=== PATIENT | female | born 1965 | race Caucasian/White ===

== ENCOUNTER 2017-08-16 18:56 | Inpatient (IN) | payer OTHER ==
[~2017-08-16] VITALS: Ht 160 cm; Wt 90.7 kg
[2017-08-16 19:02] VITALS: BP_SYST 149
[2017-08-16] MEDS ORDERED: NACL 0.9% 1,000 ML IV ONE (20:10)
[2017-08-16] MEDS ORDERED: KETOROLAC TROMETHAMINE 30 MG VIAL IVP ONE (20:15)
[2017-08-16] MEDS ORDERED: ONDANSETRON HCL 4 MG/2 ML VIAL IVP ONE (20:15)
[2017-08-16 20:36] LABS: HEMATOCRIT 47.4 % (36-48); HEMOGLOBIN 15.6 g/dL (12.0-16.0); MEAN CORPUSCULAR HEMOGLOBIN 29 pg (27-31); MEAN CORPUSCULAR HGB CONC 33 % (32-36); MEAN CORPUSCULAR VOLUME 89 fL (79.0-98.0); PLATELET COUNT (AUTO) 324 K/uL (130-430); RED BLOOD CELL COUNT(AUTO) 5.34 MIL/uL (4.2-6.2); RED CELL DISTRIBUTION WIDTH 12.8 % (9.0-15.0); WHITE BLOOD COUNT (AUTO) 9.9 K/uL (4.8-10.8)
[2017-08-16 20:50] LABS: CALCIUM 9.1 mg/dL (8.4-11.0); CREATININE 0.92 mg/dL (0.55-1.30); POTASSIUM 3.7 mmol/L (3.5-5.1)
[2017-08-16 20:55] LABS: TOTAL BILIRUBIN 2.6 mg/dL (0.0-1.0)
[2017-08-16 20:58] LABS: BAND % (MANUAL) 21 % (0-6); LYMPHOCYTES % (MANUAL) 7 % (20-46)
[2017-08-16 20:59] LABS: BASOPHILS % (MANUAL) 0 % (0-2); EOSINOPHILS % (MANUAL) 0 % (0-7); MONOCYTES % (MANUAL) 5 % (0-11)
[2017-08-16] MEDS ORDERED: metroNIDAZOLE 500 mg/NS 100 ML IV ONE (21:15)
[2017-08-16] MEDS ORDERED: fentaNYL CITRATE/PF 100 MCG/2 ML AMP IVP ONE (21:30)
[2017-08-16 22:04] VITALS: BP_SYST 135
[2017-08-16] MEDS ORDERED: MORPHINE 4 MG/ML INJ. SYRINGE IVP PRN (22:15)
[2017-08-16] MEDS ORDERED: ONDANSETRON HCL 4 MG/2 ML VIAL IVP PRN (22:15)
[2017-08-17] VITALS (7 sets, daily range): BP systolic 127–144
[2017-08-17] MEDS ORDERED: metroNIDAZOLE 500 mg/NS 100 ML IV ONE (02:14)
[2017-08-17] MEDS ORDERED: LEVOFLOXACIN 500 MG/D5W 100 ML IV ONE (02:14)
[2017-08-17] MEDS: LEVOFLOXACIN 500 MG/D5W 100 ML IV SCH (02:54)
[2017-08-17] MEDS: D5NS 1,000 ML IV SCH ×3 (02:55→20:54)
[2017-08-17] MEDS: MORPHINE 2 MG/ML INJ. SYRINGE IVP PRN ×3 (03:04→17:54)
[2017-08-17] MEDS: metroNIDAZOLE 500 mg/NS 100 ML IV SCH ×3 (05:17→21:24)
[2017-08-17 06:22] LABS: BASOPHILS % (AUTO) 0.3 % (0.0-2.0); EOSINOPHILS # (AUTO) 0.1 K/uL (0.0-0.4); EOSINOPHILS % (AUTO) 1.3 % (0.0-4.0); HEMATOCRIT 41.4 % (36-48); HEMOGLOBIN 14.1 g/dL (12.0-16.0); LYMPHOCYTES # (AUTO) 1.1 K/uL (1.0-5.5); MEAN CORPUSCULAR HEMOGLOBIN 31 pg (27-31); MEAN CORPUSCULAR HGB CONC 34 % (32-36); MEAN CORPUSCULAR VOLUME 89 fL (79.0-98.0); MONOCYTES # (AUTO) 0.7 K/uL (0.0-1.0); MONOCYTES % (AUTO) 8.1 % (1.7-9.3); NEUTROPHILS # (AUTO) 6.3 K/uL (1.8-7.7); NEUTROPHILS % (AUTO) 77.3 % (40.0-70.0); PLATELET COUNT (AUTO) 249 K/uL (130-430); RED BLOOD CELL COUNT(AUTO) 4.63 MIL/uL (4.2-6.2); RED CELL DISTRIBUTION WIDTH 12.7 % (9.0-15.0); WHITE BLOOD COUNT (AUTO) 8.2 K/uL (4.8-10.8)
[2017-08-17 06:31] LABS: PROTHROMBIN TIME 10.3 SECS (9.5-12.5)
[2017-08-17 06:46] LABS: ALBUMIN 3.2 g/dL (3.4-4.8); CALCIUM 8.2 mg/dL (8.4-11.0); CREATININE 0.79 mg/dL (0.55-1.30); POTASSIUM 3.4 mmol/L (3.5-5.1); TOTAL BILIRUBIN 2.1 mg/dL (0.0-1.0)
[2017-08-17] MEDS: PANTOPRAZOLE SODIUM 40 MG/VIAL (PROTONIX) IVP SCH (09:15)
[2017-08-18] MEDS: LEVOFLOXACIN 500 MG/D5W 100 ML IV SCH (01:14)
[2017-08-18 04:45] VITALS: BP_SYST 120; BP_SYST 123
[2017-08-18] MEDS: metroNIDAZOLE 500 mg/NS 100 ML IV SCH ×3 (05:29→21:42)
[2017-08-18 05:34] LABS: BASOPHILS % (AUTO) 0.2 % (0.0-2.0); EOSINOPHILS # (AUTO) 0.1 K/uL (0.0-0.4); EOSINOPHILS % (AUTO) 0.8 % (0.0-4.0); HEMATOCRIT 38.3 % (36-48); HEMOGLOBIN 13.1 g/dL (12.0-16.0); LYMPHOCYTES # (AUTO) 0.8 K/uL (1.0-5.5); LYMPHOCYTES % (AUTO) 7.4 % (20.5-51.5); MEAN CORPUSCULAR HEMOGLOBIN 30 pg (27-31); MEAN CORPUSCULAR HGB CONC 34 % (32-36); MEAN CORPUSCULAR VOLUME 89 fL (79.0-98.0); MONOCYTES # (AUTO) 1.2 K/uL (0.0-1.0); NEUTROPHILS # (AUTO) 8.6 K/uL (1.8-7.7); NEUTROPHILS % (AUTO) 80.6 % (40.0-70.0); PLATELET COUNT (AUTO) 206 K/uL (130-430); RED BLOOD CELL COUNT(AUTO) 4.32 MIL/uL (4.2-6.2); RED CELL DISTRIBUTION WIDTH 12.9 % (9.0-15.0); WHITE BLOOD COUNT (AUTO) 10.7 K/uL (4.8-10.8)
[2017-08-18 05:48] LABS: ALBUMIN 3.1 g/dL (3.4-4.8); CALCIUM 8.2 mg/dL (8.4-11.0); CREATININE 0.83 mg/dL (0.55-1.30); POTASSIUM 3.5 mmol/L (3.5-5.1)
[2017-08-18] MEDS: D5NS 1,000 ML IV SCH ×2 (06:49→17:25)
[2017-08-18 08:36] VITALS: BP_SYST 127
[2017-08-18] MEDS: PANTOPRAZOLE SODIUM 40 MG/VIAL (PROTONIX) IVP SCH (08:40)
[2017-08-18 12:42] VITALS: BP_SYST 131
[2017-08-18 16:11] VITALS: BP_SYST 134
[2017-08-18] MEDS ORDERED: MORPHINE 2 MG/ML INJ. SYRINGE ONE (18:27)
[2017-08-18] MEDS ORDERED: MORPHINE 2 MG/ML INJ. SYRINGE IVP PRN (18:30)
[2017-08-18 20:00] VITALS: BP_SYST 144
[2017-08-19] VITALS (7 sets, daily range): BP systolic 128–150
[2017-08-19] MEDS: MORPHINE 2 MG/ML INJ. SYRINGE IVP PRN ×2 (00:25→21:42)
[2017-08-19] MEDS: LEVOFLOXACIN 500 MG/D5W 100 ML IV SCH (00:28)
[2017-08-19] MEDS: D5NS 1,000 ML IV SCH ×3 (05:31→21:48)
[2017-08-19] MEDS: metroNIDAZOLE 500 mg/NS 100 ML IV SCH ×3 (05:31→21:33)
[2017-08-19 06:15] LABS: BASOPHILS % (AUTO) 0.2 % (0.0-2.0); EOSINOPHILS # (AUTO) 0.1 K/uL (0.0-0.4); EOSINOPHILS % (AUTO) 0.6 % (0.0-4.0); HEMATOCRIT 37.7 % (36-48); HEMOGLOBIN 12.6 g/dL (12.0-16.0); LYMPHOCYTES # (AUTO) 0.9 K/uL (1.0-5.5); LYMPHOCYTES % (AUTO) 7.5 % (20.5-51.5); MEAN CORPUSCULAR HEMOGLOBIN 30 pg (27-31); MEAN CORPUSCULAR HGB CONC 33 % (32-36); MEAN CORPUSCULAR VOLUME 89 fL (79.0-98.0); MONOCYTES # (AUTO) 1.3 K/uL (0.0-1.0); MONOCYTES % (AUTO) 10.8 % (1.7-9.3); NEUTROPHILS # (AUTO) 9.7 K/uL (1.8-7.7); NEUTROPHILS % (AUTO) 80.9 % (40.0-70.0); PLATELET COUNT (AUTO) 226 K/uL (130-430); RED BLOOD CELL COUNT(AUTO) 4.24 MIL/uL (4.2-6.2); RED CELL DISTRIBUTION WIDTH 13.1 % (9.0-15.0)
[2017-08-19 06:43] LABS: CALCIUM 8.8 mg/dL (8.4-11.0); CREATININE 0.75 mg/dL (0.55-1.30); POTASSIUM 3.3 mmol/L (3.5-5.1); TOTAL BILIRUBIN 1.7 mg/dL (0.0-1.0)
[2017-08-19] MEDS: PANTOPRAZOLE SODIUM 40 MG/VIAL (PROTONIX) IVP SCH (08:03)
[2017-08-19] MEDS ORDERED: POTASSIUM CHLORIDE 20 MEQ/PKT PACKET PO ONE (11:15)
[2017-08-20] VITALS (7 sets, daily range): BP systolic 111–140
[2017-08-20] MEDS: LEVOFLOXACIN 500 MG/D5W 100 ML IV SCH (01:49)
[2017-08-20] MEDS: MORPHINE 2 MG/ML INJ. SYRINGE IVP PRN ×2 (01:52→12:34)
[2017-08-20] MEDS: metroNIDAZOLE 500 mg/NS 100 ML IV SCH ×3 (05:40→22:28)
[2017-08-20 06:24] LABS: BASOPHILS % (AUTO) 0.2 % (0.0-2.0); EOSINOPHILS # (AUTO) 0.1 K/uL (0.0-0.4); EOSINOPHILS % (AUTO) 0.7 % (0.0-4.0); HEMATOCRIT 36.3 % (36-48); HEMOGLOBIN 12.3 g/dL (12.0-16.0); LYMPHOCYTES # (AUTO) 0.9 K/uL (1.0-5.5); LYMPHOCYTES % (AUTO) 7.8 % (20.5-51.5); MEAN CORPUSCULAR HEMOGLOBIN 30 pg (27-31); MEAN CORPUSCULAR HGB CONC 34 % (32-36); MEAN CORPUSCULAR VOLUME 89 fL (79.0-98.0); MONOCYTES # (AUTO) 1.4 K/uL (0.0-1.0); MONOCYTES % (AUTO) 11.5 % (1.7-9.3); NEUTROPHILS # (AUTO) 9.6 K/uL (1.8-7.7); NEUTROPHILS % (AUTO) 79.8 % (40.0-70.0); PLATELET COUNT (AUTO) 238 K/uL (130-430); RED BLOOD CELL COUNT(AUTO) 4.06 MIL/uL (4.2-6.2); RED CELL DISTRIBUTION WIDTH 12.6 % (9.0-15.0)
[2017-08-20 06:33] LABS: INR 1.1 (0.8-1.2); PROTHROMBIN TIME 11.3 SECS (9.5-12.5)
[2017-08-20 06:39] LABS: ALBUMIN 2.7 g/dL (3.4-4.8); CALCIUM 8.1 mg/dL (8.4-11.0); CREATININE 0.71 mg/dL (0.55-1.30); POTASSIUM 3.2 mmol/L (3.5-5.1); TOTAL BILIRUBIN 1.4 mg/dL (0.0-1.0)
[2017-08-20] MEDS: PANTOPRAZOLE SODIUM 40 MG/VIAL (PROTONIX) IVP SCH (08:22)
[2017-08-20] MEDS: D5NS 1,000 ML IV SCH ×2 (08:22→18:28)
[2017-08-21] MEDS: LEVOFLOXACIN 500 MG/D5W 100 ML IV SCH (00:47)
[2017-08-21 04:30] VITALS: BP_SYST 141
[2017-08-21] MEDS: metroNIDAZOLE 500 mg/NS 100 ML IV SCH ×3 (05:02→21:31)
[2017-08-21] MEDS: D5NS 1,000 ML IV SCH ×3 (05:02→23:33)
[2017-08-21 08:00] VITALS: BP_SYST 150
[2017-08-21] MEDS: PANTOPRAZOLE SODIUM 40 MG/VIAL (PROTONIX) IVP SCH (08:49)
[2017-08-21 12:40] VITALS: BP_SYST 142
[2017-08-21] MEDS ORDERED: IOHEXOL 100 ML IV ONE (14:41)
[2017-08-21] MEDS ORDERED: LR 1,000 ML IV SCH (15:25)
[2017-08-21] MEDS ORDERED: HYDROmorphone 1 MG INJ. 1 MG/ML AMPUL IVP PRN (15:30)
[2017-08-21] MEDS ORDERED: KETOROLAC TROMETHAMINE 30 MG VIAL IVP PRN (15:30)
[2017-08-21] MEDS ORDERED: MEPERIDINE HCL/PF 25 MG/ML DISP.SYRIN IVP PRN ×2 (15:30)
[2017-08-21] MEDS ORDERED: ONDANSETRON HCL 4 MG/2 ML VIAL IVP PRN (15:30)
[2017-08-21] MEDS ORDERED: HYDROmorphone 2 MG/ML VIAL IVP PRN ×2 (15:30)
[2017-08-21 16:50] VITALS: BP_SYST 131
[2017-08-21 18:14] VITALS: BP_SYST 131
[2017-08-21 20:00] VITALS: BP_SYST 123
[2017-08-22] VITALS: BP_SYST 119
[2017-08-22] MEDS: LEVOFLOXACIN 500 MG/D5W 100 ML IV SCH (00:02)
[2017-08-22 04:00] VITALS: BP_SYST 133
[2017-08-22] MEDS: D5NS 1,000 ML IV SCH (04:38)
[2017-08-22] MEDS: metroNIDAZOLE 500 mg/NS 100 ML IV SCH ×2 (05:16→14:11)
[2017-08-22 07:24] LABS: BASOPHILS % (AUTO) 0.1 % (0.0-2.0); EOSINOPHILS % (AUTO) 0.2 % (0.0-4.0); HEMATOCRIT 36.8 % (36-48); HEMOGLOBIN 12.4 g/dL (12.0-16.0); LYMPHOCYTES # (AUTO) 0.6 K/uL (1.0-5.5); LYMPHOCYTES % (AUTO) 5.7 % (20.5-51.5); MEAN CORPUSCULAR HEMOGLOBIN 30 pg (27-31); MEAN CORPUSCULAR HGB CONC 34 % (32-36); MEAN CORPUSCULAR VOLUME 89 fL (79.0-98.0); MONOCYTES # (AUTO) 0.6 K/uL (0.0-1.0); MONOCYTES % (AUTO) 5.6 % (1.7-9.3); NEUTROPHILS # (AUTO) 8.8 K/uL (1.8-7.7); NEUTROPHILS % (AUTO) 88.4 % (40.0-70.0); PLATELET COUNT (AUTO) 263 K/uL (130-430); RED BLOOD CELL COUNT(AUTO) 4.11 MIL/uL (4.2-6.2); RED CELL DISTRIBUTION WIDTH 12.7 % (9.0-15.0)
[2017-08-22 07:41] LABS: CALCIUM 8.3 mg/dL (8.4-11.0); CREATININE 0.75 mg/dL (0.55-1.30); POTASSIUM 3.4 mmol/L (3.5-5.1)
[2017-08-22 07:51] LABS: ALBUMIN 2.5 g/dL (3.4-4.8); TOTAL BILIRUBIN 0.6 mg/dL (0.0-1.0)
[2017-08-22 08:00] VITALS: BP_SYST 117
[2017-08-22] MEDS: PANTOPRAZOLE SODIUM 40 MG/VIAL (PROTONIX) IVP SCH (09:09)
[2017-08-22 12:00] VITALS: BP_SYST 134
[2017-08-22 14:15] VITALS: BP_SYST 134
== END 2017-08-22 15:04 | disposition home or self-care (01) | DRG 444 ==
LOC: SED 18:56 → SMU 21:49
PROVIDERS: ADMIT Internal Medicine Hospice and Palliative Medicine; ATTEND Internal Medicine Hospice and Palliative Medicine
PROC: 0FC98ZZ Extirpation of Matter from Common Bile Duct, Via Natural or Artificial Opening Endoscopic (ICD-10-PCS; 2017-08-21)
PROC: 0F798ZZ Dilation of Common Bile Duct, Via Natural or Artificial Opening Endoscopic (ICD-10-PCS; principal; 2017-08-21 15:00)
DX: K80.70 Calculus of gallbladder and bile duct without cholecystitis without obstruction (principal); K85.10 Biliary acute pancreatitis without necrosis or infection; I10 Essential (primary) hypertension; J44.9 Chronic obstructive pulmonary disease, unspecified; E66.9 Obesity, unspecified; Z68.35 Body mass index [BMI] 35.0-35.9, adult; Z79.899 Other long term (current) drug therapy; Z88.0 Allergy status to penicillin
CPT/HCPCS: 36415; 74181; 76001; 76700-TC; 80053; 82150-TC; 83690-TC; 84703; 85007; 85025; 85027; 85610-TC; 85730-TC; 96365; 96375; 99285; C9113; J1885; J1956; J2270; J2405; J3010; J3490; J7030; J7042; Q9967